=== PATIENT | male | born 1955 | race Caucasian/White ===

== ENCOUNTER 2018-07-20 06:52 | Inpatient (IN) | payer BC, OTHER ==
[~2018-07-20] VITALS: Ht 175.3 cm; Wt 79.0 kg
[2018-07-20 08:05] LABS: Basophils # (auto) 0.1 uL; Basophils % (auto) 0.8 % (0.0-2.0); Eosinophils # (auto) 0.1 uL; Eosinophils % (auto) 1.1 % (0.0-7.0); Hematocrit 51.1 % (41.0-53.0); Hemoglobin 17.5 g/dL (13.5-17.5); Lymphocytes # (auto) 0.9 uL; Lymphocytes % (auto) 8.6 % (10.0-50.0); Mean Corpuscular Hemoglobin 33.2 pg (28.0-32.0); Mean Corpuscular Hgb Conc. 34.2 g/dL (32.0-36.0); Mean Corpuscular Volume 96.9 fL (80.0-100.0); Monocytes # (auto) 0.7 uL; Monocytes % (auto) 6.8 % (0.0-12.0); Neutrophils # (auto) 8.7 uL; Neutrophils % (auto) 82.7 % (37.0-80.0); Nucleated Red Blood Cells % 0.1 %; Platelet Count (auto) 249 10^3/uL (140-450); Red Blood Cells 5.27 10^6/uL (4.5-5.90); Red Cell Distribution Width 12.9 % (11.8-14.3); White Blood Cell 10.5 10^3/uL (4.4-10.8)
[2018-07-20] MEDS ORDERED: SODIUM CHLORIDE 0.9% 1,000 ML IV ONE (08:06)
[2018-07-20 08:16] LABS: Albumin 3.7 g/dL (3.4-5.0); Calcium 8.7 mg/dL (8.5-10.1); Potassium 3.9 mmol/L (3.5-5.1)
[2018-07-20 08:20] LABS: Bilirubin, Total 1.8 mg/dL (0.2-1.0); Total Protein 7.3 g/dL (6.4-8.2)
[2018-07-20 08:49] LABS: INR 0.92 (0.9-1.15); Partial Thromboplastin Time 25.1 sec (23.78-33.04); Prothrombin Time 9.9 sec (9.27-12.13)
[2018-07-20 10:56] LABS: Urine Bacteria FEW /hpf (None Seen); Urine Blood Negative /uL (Negative); Urine Mucus FEW (None Seen); Urine Specific Gravity 1.011 (1.001-1.035); Urine WBC 3 /hpf (0 - 3)
[2018-07-20] MEDS ORDERED: ENOXAPARIN SOD 60 MG/0.6 ML SYRINGE SC ONE (11:30)
[2018-07-20] MEDS ORDERED: ASPirin 81 mg TAB PO ONE (11:30)
[2018-07-20] MEDS ORDERED: ACETAMINOPHEN 500 MG TAB PO PRN (12:15)
[2018-07-20] MEDS ORDERED: NITROGLYCERIN 0.4 MG SL TAB SL PRN (12:15)
[2018-07-20] MEDS ORDERED: ALPRAZolam 0.25 MG TAB PO PRN (12:15)
[2018-07-20] MEDS ORDERED: HYDROcodone-ACET 5/325MG TAB PO PRN (12:15)
[2018-07-20] MEDS ORDERED: MORPHINE SULF INJ 2 MG/ML SYRINGE 1ML IV PRN (12:15)
[2018-07-20] MEDS ORDERED: MORPHINE SULFATE 4 MG/ML SYR/VIAL IV PRN (12:15)
[2018-07-20] MEDS ORDERED: NITROGLYCERIN 0.4MG/HR TOPICAL PATCH TD ONE (12:15)
[2018-07-20] MEDS ORDERED: ONDANSETRON HCL 4 MG/2 ML VIAL IV PRN (12:15)
[2018-07-20] MEDS ORDERED: NICOTINE 21MG/24 HR TOPICAL PATCH TD ONE (12:15)
[2018-07-20] MEDS: SODIUM CHLORIDE 0.9% 1,000 ML IV SCH ×2 (12:39→22:12)
[2018-07-20] MEDS ORDERED: ENOXAPARIN SOD 80 MG/0.8ML SYRINGE SC ONE (21:00)
--- NOTE | 2018-07-20 21:17 | NUR ---
Telemetry admit from [facility] admitted to Telemetry. Patient oriented to Chidi Hernandez, primary RN, unit, room, bed, and unit policies regarding patient care and visiting hours. Patient now on continuous telemetry monitoring, tele box # HC9 and telemetry reading on arrival to unit is SR 60s. Patient's vs taken and recorded, weighed by bedscale and encouraged to call if they need something, call light within reach. POC reviewed. All questions and concerns addressed, patient verbalized understanding. Aware of poss lhc in am, will be npo p mn. Side rails up x2, bed in lowest, locked position, non skid socks on. Continue care. Note:
[2018-07-20 21:20] VITALS: BP 137/80
[2018-07-20 21:21] VITALS: BP 137/80
[2018-07-20] MEDS: METOPROLOL TARTRATE 25 MG TAB PO SCH (22:12)
[2018-07-20] MEDS: ATORVASTATIN 20 MG TAB PO SCH (22:12)
[2018-07-21 05:00] VITALS: BP 126/64
--- NOTE | 2018-07-21 06:35 | NUR ---
BUSINESS INTELLIGENCE DIRECTOR SPOKE TO TRICIA AJ REGARDING PT'S SCHEDULE. PER MÓNICA RN, BRING PT TO BUSINESS INTELLIGENCE DIRECTOR BETWEEN [phone]. PT MADE AWARE. WILL ENDORSE TO DAY RN. CONTINUE CARE. Addendum: 07/21/18 at 0701 by Chidi Hernandez RN RECEIVED CALL FROM BUSINESS INTELLIGENCE DIRECTOR, THEY WILL CALL FOR NEW TIME FOR [facility]. PT INFORMED. WILL ENDORSE.
[2018-07-21 07:17] LABS: Basophils # (auto) 0.1 uL; Basophils % (auto) 0.8 % (0.0-2.0); Eosinophils # (auto) 0.2 uL; Eosinophils % (auto) 2.3 % (0.0-7.0); Hematocrit 44.8 % (41.0-53.0); Hemoglobin 15.5 g/dL (13.5-17.5); Lymphocytes # (auto) 1.5 uL; Lymphocytes % (auto) 21.4 % (10.0-50.0); Mean Corpuscular Hemoglobin 33.7 pg (28.0-32.0); Mean Corpuscular Hgb Conc. 34.6 g/dL (32.0-36.0); Mean Corpuscular Volume 97.4 fL (80.0-100.0); Monocytes # (auto) 0.6 uL; Monocytes % (auto) 8.7 % (0.0-12.0); Neutrophils # (auto) 4.7 uL; Neutrophils % (auto) 66.8 % (37.0-80.0); Nucleated Red Blood Cells % 0.1 %; Platelet Count (auto) 215 10^3/uL (140-450); Red Cell Distribution Width 12.7 % (11.8-14.3)
[2018-07-21 07:48] LABS: Potassium 3.9 mmol/L (3.5-5.1)
[2018-07-21 07:57] LABS: BUN/Creatinine Ratio 15.2; Calcium 7.8 mg/dL (8.5-10.1)
--- NOTE | 2018-07-21 08:05 | NUR ---
Called Staff Counselor. Spoke with Liya. Liya said patient allowed to have light breakfast, no coffee, estimated time of Left Heart Cath in the afternoon. Staff Counselor will call back.
[2018-07-21] MEDS: SODIUM CHLORIDE 0.9% 1,000 ML IV SCH ×2 (08:15→17:32)
[2018-07-21] MEDS ORDERED: LIDOCAINE 2%HCL (LOCAL ANESTH.) INJ 20ML MDV ONE (08:25)
[2018-07-21] MEDS ORDERED: IODIXANOL 320MG/ML 100ML BTL IV ONE (08:26)
--- NOTE | 2018-07-21 08:35 | NUR ---
Received a call back from Solution Lead to transfer the patient now for Left Heart Cath. Solution Lead RN made aware patient had light breakfast as ordered, no coffee.
--- NOTE | 2018-07-21 08:40 | NUR ---
Patient transferred via bed to [place] Worker. Patient awake, oriented x4. No acute distress noted. IV line intact and patent. Endorsed patient to lab animal technician JEAN MARIE Stewart.
[2018-07-21] MEDS ORDERED: ANGIOMAX 250 MG VIAL IV ONE (08:43)
[2018-07-21] MEDS ORDERED: SODIUM CHL 0.9% 50 ML ONE (08:45)
[2018-07-21] MEDS ORDERED: fentaNYL CITRATE 100 MCG/2 ML VL ONE (08:45)
[2018-07-21] MEDS ORDERED: MIDAZOLAM HCL 1MG/1ML-2 ML VIAL ONE (08:45)
[2018-07-21] MEDS ORDERED: NITROGLYCERIN 0.4MG/DOSE SPRAY 4.9GM ONE (08:48)
[2018-07-21 09:00] VITALS: BP 123/67
[2018-07-21] MEDS ORDERED: EPINEPHrine HCL 1 MG/10 ML SYRG ONE (09:08)
[2018-07-21] MEDS ORDERED: ATROPINE SULFATE 1 MG/1 ML VIAL ONE (09:08)
[2018-07-21] MEDS ORDERED: IOHEXOL 350 MG/ML 100ML IJ ONE (09:15)
[2018-07-21] MEDS ORDERED: CLOPIDOGREL 300 MG TAB ONE (09:28)
[2018-07-21] MEDS ORDERED: ASPirin 81 mg TAB ONE (09:28)
[2018-07-21] MEDS ORDERED: ASPirin 325 MG TAB ONE (09:30)
[2018-07-21] MEDS ORDERED: NITROGLYCERIN 0.4 MG SL TAB SL ONE (10:00)
--- NOTE | 2018-07-21 10:30 | NUR ---
Patient back to room, awake, oriented x4. Dressing on the right groin clean, dry and intact. Patient allowed to get up at 11:30 am today as per Deaf/Hard Of Hearing Specialist. Bed alarm on. Patient's cellphone, biosecurity officer, pair of eyeglasses, pair of white sneakers at bedside.
[2018-07-21] MEDS: METOPROLOL TARTRATE 25 MG TAB PO SCH ×2 (10:53→21:47)
[2018-07-21] MEDS: NITROGLYCERIN 0.4MG/HR TOPICAL PATCH TD SCH (10:54)
--- NOTE | 2018-07-21 10:54 | NUR ---
Patient no complaints of chest pain, okay to apply his Nitroglycerin patch on the left upper chest. Patient to press the call light to inform me if he gets headache. at bedside.
[2018-07-21] MEDS: NICOTINE 21MG/24 HR TOPICAL PATCH TD SCH (10:55)
--- NOTE | 2018-07-21 11:45 | NUR ---
Patient able to get up and walk to the bathroom.
[2018-07-21 13:00] VITALS: BP 120/67
--- NOTE | 2018-07-21 13:20 | NUR ---
Karo Tineo at bedside. MD ordered to follow up with Dr. Christensen if patient is okay to go home tomorrow. Patient asked for doctor's notes when he gets discharged, patient said he's currently on disability.
--- NOTE | 2018-07-21 16:08 | NUR ---
Informed Dr. Christensen if it's okay to discharge the patient with prescription tomorrow as per [place] Tineo. Waiting for Dr. Christensen to call back.
[2018-07-21 17:00] VITALS: BP 87/48
--- NOTE | 2018-07-21 18:00 | NUR ---
Dr. Christensen said it's okay to discharge the patient tomorrow, 07/22/2018.
[2018-07-21] MEDS: ATORVASTATIN 20 MG TAB PO SCH (21:48)
[2018-07-21 22:07] VITALS: BP 109/57
[2018-07-22] MEDS: SODIUM CHLORIDE 0.9% 1,000 ML IV SCH ×2 (04:15→13:18)
[2018-07-22 05:18] VITALS: BP 116/62
--- NOTE | 2018-07-22 07:25 | NUR ---
CLOSING NOTE REPORT ENDORSED TO DAY SHIFT RN PATIENT RESTING IN BED. DRESSING TO RIGHT GROIN C/D/I, NO S/S OF BLEEDING OR HEMATOMA NOTED. PT STABLE. CALL LIGHT WITHIN REACH
--- NOTE | 2018-07-22 07:40 | NUR ---
Patient sitting in bed, awake, oriented x4. No acute distress noted.
[2018-07-22 09:00] VITALS: BP 125/52
[2018-07-22] MEDS ORDERED: CLOPIDOGREL BISULFATE 75 MG TAB PO SCH (10:00)
[2018-07-22] MEDS ORDERED: RAMIPRIL 2.5 MG CAP PO SCH (10:00)
[2018-07-22] MEDS: NITROGLYCERIN 0.4MG/HR TOPICAL PATCH TD SCH (10:00)
[2018-07-22] MEDS ORDERED: ASPirin 81 mg TAB PO SCH (10:00)
--- NOTE | 2018-07-22 10:24 | NUR ---
Called Pharmacy for Altace/Ramipril.
[2018-07-22] MEDS: NICOTINE 21MG/24 HR TOPICAL PATCH TD SCH (10:29)
[2018-07-22] MEDS: METOPROLOL TARTRATE 25 MG TAB PO SCH (10:30)
--- NOTE | 2018-07-22 12:05 | NUR ---
Karo Tineo at bedside. spoke with the patient and family. Patient said he does take medications at home. Dr. Cee to put in discharge orders, doctor's notes, write prescription. Addendum: 07/22/18 at 1321 by Cesilia Riojas RN does not take medications at home.
[2018-07-22 13:00] VITALS: BP 134/71
--- NOTE | 2018-07-22 14:10 | NUR ---
Called Dr. Christensen's office. Spoke with Diamond. Patient to make a follow up appointment at Dr. Christensen's office for Cardiology on 07/27/2018 at 0940 am, bring ID and insurance card ID. Patient made aware. Accounting Lecturer Verna Kramer at bedside regarding patient's primary physician appointment.
--- NOTE | 2018-07-22 16:10 | NUR ---
Discharge instructions given as ordered. Encourage to follow up with PMD as instructed. All questions and concerns addressed. Patient verbalized understanding. Medication reconciliation form completed and copy given to patient. IV removed with catheter intact, pressure dressing applied. Telemetry unit returned to [facility]. Patient is ambulatory, patient refused to be taken to vehicle via wheelchair, patient with all personal belongings, accompanied by family members. Patient said he will pass by [facility] to pick his prescription refill. No distress noted at time of departure.
== END 2018-07-22 16:10 | disposition home or self-care (01) | DRG 247 ==
LOC: EDBD 06:52 → ER 06:58 → TELE 12:15 → TELE-WESTW 21:17
PROVIDERS: ADMIT Nurse Practitioner Acute Care; ATTEND Family Medicine
PROC: 027034Z Dilation of Coronary Artery, One Artery with Drug-eluting Intraluminal Device, Percutaneous Approach (ICD-10-PCS; principal; 2018-07-21)
PROC: B2111ZZ Fluoroscopy of Multiple Coronary Arteries using Low Osmolar Contrast (ICD-10-PCS; 2018-07-21)
DX: I21.4 Non-ST elevation (NSTEMI) myocardial infarction (principal); F17.210 Nicotine dependence, cigarettes, uncomplicated; I10 Essential (primary) hypertension; E78.5 Hyperlipidemia, unspecified; E78.00 Pure hypercholesterolemia, unspecified; Z82.49 Family history of ischemic heart disease and other diseases of the circulatory system; Z79.02 Long term (current) use of antithrombotics/antiplatelets
CPT/HCPCS: 36415; 71046; 80048; 80053; 80061; 81001; 83735; 83880; 84443; 84484; 85025; 85379; 85610; 85730; 93005; 94761; 96360; 96372; A6257; G0378; J0461; J2250; Q9967

== ENCOUNTER → 2018-08-30 | Outpatient (CLI) | payer BC ==
[~2018-08-30] VITALS: Ht 176.5 cm; Wt 77.1 kg
== END | disposition home or self-care (01) ==
LOC: Rad HDHVI 08:14
PROVIDERS: ATTEND Internal Medicine Cardiovascular Disease
DX: I07.1 Rheumatic tricuspid insufficiency (principal); I25.10 Atherosclerotic heart disease of native coronary artery without angina pectoris; I21.09 ST elevation (STEMI) myocardial infarction involving other coronary artery of anterior wall; Z98.61 Coronary angioplasty status
CPT/HCPCS: 78452; 93017; 93306; 96374; A9500

== ENCOUNTER → 2018-11-29 | Outpatient (CLI) | payer BC ==
[2018-11-29 10:25] LABS: Basophils # (auto) 0.1 uL; Eosinophils # (auto) 0.1 uL; Eosinophils % (auto) 1.5 % (0.0-7.0); Hematocrit 45.5 % (41.0-53.0); Hemoglobin 15.5 g/dL (13.5-17.5); Lymphocytes # (auto) 1.9 uL; Lymphocytes % (auto) 27.8 % (10.0-50.0); Mean Corpuscular Hemoglobin 32.9 pg (28.0-32.0); Mean Corpuscular Hgb Conc. 34.1 g/dL (32.0-36.0); Mean Corpuscular Volume 96.3 fL (80.0-100.0); Monocytes # (auto) 0.4 uL; Monocytes % (auto) 6.6 % (0.0-12.0); Neutrophils # (auto) 4.3 uL; Neutrophils % (auto) 63.1 % (37.0-80.0); Nucleated Red Blood Cells % 0.1 %; Platelet Count (auto) 233 10^3/uL (140-450); Red Blood Cells 4.73 10^6/uL (4.5-5.90); Red Cell Distribution Width 12.8 % (11.8-14.3); White Blood Cell 6.8 10^3/uL (4.4-10.8)
[2018-11-29 10:36] LABS: Albumin 3.6 g/dL (3.4-5.0); BUN/Creatinine Ratio 18.9; Potassium 4.6 mmol/L (3.5-5.1)
[2018-11-29 10:38] LABS: Bilirubin, Total 1.3 mg/dL (0.2-1.0); Total Protein 7.2 g/dL (6.4-8.2)
[2018-11-29 10:43] LABS: Free T4 (Free Thyroxine) 1.04 ng/dL (0.89-1.76)
== END | disposition home or self-care (01) ==
LOC: LAB 09:48
PROVIDERS: ATTEND Internal Medicine
DX: E11.9 Type 2 diabetes mellitus without complications (principal)
CPT/HCPCS: 36415; 80053; 80061; 82607; 83036; 84439; 84443; 85025

== ENCOUNTER → 2019-10-08 | Emergency (ER) | payer BC ==
[~2019-10-08] VITALS: Ht 172.7 cm; Wt 77.1 kg
[~2019-10-08] MED LIST: SODIUM CHLORIDE 0.9% 1,000 ML IV ONE; THIAMINE 100mg/ml INJ (200mg/2ml VIAL) ONE; THIAMINE INJ 100 MG in SODIUM CHLORIDE 0.9% 1,000 ML IV ONE
[2019-10-08 00:56] LABS: Basophils # (auto) 0 10 ^3/uL (0-0.2); Basophils % (auto) 0.3 % (0.0-2.0); Eosinophils # (auto) 0.1 10 ^3/uL (0-0.8); Eosinophils % (auto) 1.9 % (0.0-7.0); Hematocrit 44.1 % (41.0-53.0); Hemoglobin 15.2 g/dL (13.5-17.5); Lymphocytes # (auto) 2.1 10 ^3/uL (0.4-5.4); Mean Corpuscular Hemoglobin 32.2 pg (28.0-32.0); Mean Corpuscular Hgb Conc. 34.5 g/dL (32.0-36.0); Mean Corpuscular Volume 93.6 fL (80.0-100.0); Monocytes # (auto) 0.4 10 ^3/uL (0-1.3); Monocytes % (auto) 6.8 % (0.0-12.0); Neutrophils # (auto) 3.6 10 ^3/uL (1.6-8.6); Nucleated Red Blood Cells % 0.3 %; Platelet Count (auto) 284 10^3/uL (140-450); Red Blood Cells 4.72 10^6/uL (4.5-5.90); Red Cell Distribution Width 12.9 % (11.8-14.3); White Blood Cell 6.3 10^3/uL (4.4-10.8)
[2019-10-08 01:11] LABS: Alanine Aminotransferase 56 U/L (16-61); Albumin 3.8 g/dL (3.4-5.0); Anion Gap 8 (5-15); Aspartate Aminotransferase 24 U/L (15-37); BUN/Creatinine Ratio 14.5; Blood Urea Nitrogen 12 mg/dL (7-18); Calcium 8.4 mg/dL (8.5-10.1); Carbon Dioxide 21 mmol/L (21-32); Chloride 111 mmol/L (98-107); GFR African American 120 mL/min; GFR Non-African American 99 mL/min; Glucose 130 mg/dL (74-106); Magnesium 2.5 mg/dL (1.6-2.6); Potassium 4.2 mmol/L (3.5-5.1); Sodium 140 mmol/L (136-145)
[2019-10-08 01:12] LABS: INR 0.95 (0.9-1.15); Partial Thromboplastin Time 24.6 sec (23.64-32.05)
[2019-10-08 01:16] LABS: Alkaline Phosphatase 81 U/L (45-117); Bilirubin, Total 0.8 mg/dL (0.2-1.0); Total Protein 7.2 g/dL (6.4-8.2)
[2019-10-08 01:36] LABS: Urine WBC None Seen /hpf (0 - 3)
[2019-10-08 01:57] LABS: Amphetamine Screen, Urine NEGATIVE (NEGATIVE); Barbiturate Scree,Urine NEGATIVE (NEGATIVE); Benzodiazephine Screen, Urine NEGATIVE (NEGATIVE); Cannabinoid Screen, Urine NEGATIVE (NEGATIVE); Cocaine Screen, Urine NEGATIVE (NEGATIVE); Opiate Scree,Urine NEGATIVE (NEGATIVE); Phencyclidine Screen, Urine NEGATIVE (NEGATIVE)
[2019-10-08 02:12] LABS: Urine Bacteria NONE SEEN /hpf (None Seen); Urine Blood Negative /uL (Negative); Urine Specific Gravity 1.005 (1.001-1.035)
[2019-10-08 05:55] VITALS: BP 128/86
== END | disposition home or self-care (01) ==
LOC: EDUNIT# 00:19 → EDBD 00:27 → ER 00:29
DX: R07.89 Other chest pain (principal); F10.129 Alcohol abuse with intoxication, unspecified; K21.9 Gastro-esophageal reflux disease without esophagitis; F17.210 Nicotine dependence, cigarettes, uncomplicated; I10 Essential (primary) hypertension; J44.9 Chronic obstructive pulmonary disease, unspecified; I25.10 Atherosclerotic heart disease of native coronary artery without angina pectoris; I25.2 Old myocardial infarction
CPT/HCPCS: 36415; 71045; 80053; 80307; 80320; 81001; 83735; 83880; 84484; 85025; 85379; 85610; 85730; 93005; 96365; 99285; J3411; J7030

== ENCOUNTER 2019-12-26 19:57 | Emergency (ER) | payer BC ==
[~2019-12-26] VITALS: Ht 175.3 cm; Wt 81.6 kg
[2019-12-26 20:21] VITALS: BP 175/71
[2019-12-26] MEDS ORDERED: LIDOCAINE 1% HCL (LOCAL ANESTH.) INJ 20ML MDV ONE (20:27)
[2019-12-26] MEDS ORDERED: LIDOCAINE 1% HCL (LOCAL ANESTH.) INJ 20ML MDV IJ ONE (20:30)
[2019-12-26] MEDS ORDERED: cefTRIAXone W LIDOCAINE 1 GM IM IM ONE (20:45)
[2019-12-26] MEDS ORDERED: cefTRIAXone SOD 1,000 MG VL ONE (21:33)
[2019-12-26 21:53] LABS: Basophils # (auto) 0 10 ^3/uL (0-0.2); Basophils % (auto) 0.2 % (0.0-2.0); Eosinophils # (auto) 0.1 10 ^3/uL (0-0.8); Eosinophils % (auto) 1.7 % (0.0-7.0); Hemoglobin 14.2 g/dL (13.5-17.5); Lymphocytes # (auto) 1.9 10 ^3/uL (0.4-5.4); Lymphocytes % (auto) 25.8 % (10.0-50.0); Mean Corpuscular Hemoglobin 32.8 pg (28.0-32.0); Mean Corpuscular Hgb Conc. 34.7 g/dL (32.0-36.0); Mean Corpuscular Volume 94.7 fL (80.0-100.0); Monocytes # (auto) 0.6 10 ^3/uL (0-1.3); Monocytes % (auto) 8.1 % (0.0-12.0); Neutrophils # (auto) 4.7 10 ^3/uL (1.6-8.6); Neutrophils % (auto) 64.2 % (37.0-80.0); Platelet Count (auto) 271 10^3/uL (140-450); Red Blood Cells 4.32 10^6/uL (4.5-5.90); Red Cell Distribution Width 12.7 % (11.8-14.3); White Blood Cell 7.3 10^3/uL (4.4-10.8)
[2019-12-26 22:05] LABS: INR 0.93 (0.9-1.15); Partial Thromboplastin Time 23.4 sec (23.0-31.2)
[2019-12-26 22:06] LABS: Albumin 3.5 g/dL (3.4-5.0); Calcium 8.4 mg/dL (8.5-10.1)
[2019-12-26 22:10] LABS: BUN/Creatinine Ratio 16.2; Total Protein 6.3 g/dL (6.4-8.2)
== END 2019-12-26 21:53 | disposition home or self-care (01) ==
LOC: ER 19:58
DX: S62.522B Displaced fracture of distal phalanx of left thumb, initial encounter for open fracture (principal); I10 Essential (primary) hypertension; F17.210 Nicotine dependence, cigarettes, uncomplicated; W22.8XXA Striking against or struck by other objects, initial encounter; Y93.89 Activity, other specified; Y92.89 Other specified places as the place of occurrence of the external cause; Y99.8 Other external cause status
CPT/HCPCS: 12002; 36415; 73130; 80053; 85025; 85610; 85730; 96372; 99284; J0696; J2001

== ENCOUNTER → 2020-01-03 | Outpatient (CLI) | payer BC ==
[2020-01-03 11:15] LABS: Basophils # (auto) 0.1 10 ^3/uL (0-0.2); Basophils % (auto) 1.1 % (0.0-2.0); Eosinophils # (auto) 0.1 10 ^3/uL (0-0.8); Eosinophils % (auto) 0.9 % (0.0-7.0); Hematocrit 44.5 % (41.0-53.0); Hemoglobin 14.9 g/dL (13.5-17.5); Lymphocytes # (auto) 1.6 10 ^3/uL (0.4-5.4); Lymphocytes % (auto) 21.9 % (10.0-50.0); Mean Corpuscular Hemoglobin 31.7 pg (28.0-32.0); Mean Corpuscular Hgb Conc. 33.4 g/dL (32.0-36.0); Mean Corpuscular Volume 94.8 fL (80.0-100.0); Monocytes # (auto) 0.4 10 ^3/uL (0-1.3); Monocytes % (auto) 6.1 % (0.0-12.0); Neutrophils # (auto) 5.1 10 ^3/uL (1.6-8.6); Platelet Count (auto) 318 10^3/uL (140-450); Red Blood Cells 4.69 10^6/uL (4.5-5.90); Red Cell Distribution Width 12.7 % (11.8-14.3); White Blood Cell 7.2 10^3/uL (4.4-10.8)
[2020-01-03 11:22] LABS: Urine Bacteria NONE SEEN /hpf (None Seen); Urine Blood Negative /uL (Negative); Urine Mucus FEW (None Seen); Urine WBC 1 /hpf (0 - 3)
[2020-01-03 12:05] LABS: Albumin 3.6 g/dL (3.4-5.0); Calcium 8.9 mg/dL (8.5-10.1); Potassium 4.4 mmol/L (3.5-5.1)
[2020-01-03 12:09] LABS: BUN/Creatinine Ratio 12.5; Bilirubin, Total 1.6 mg/dL (0.2-1.0); Total Protein 6.7 g/dL (6.4-8.2)
== END | disposition home or self-care (01) ==
LOC: LAB 10:23
PROVIDERS: ATTEND Nurse Practitioner
DX: E78.5 Hyperlipidemia, unspecified (principal); E73.9 Lactose intolerance, unspecified
CPT/HCPCS: 36415; 80053; 80061; 81001; 83036; 85025

== ENCOUNTER → 2020-02-07 | Outpatient (CLI) | payer BC | END | disposition home or self-care (01) | LOC: LAB 08:41 | PROVIDERS: ATTEND Internal Medicine Cardiovascular Disease | DX: S69.92XD Unspecified injury of left wrist, hand and finger(s), subsequent encounter (principal); I25.10 Atherosclerotic heart disease of native coronary artery without angina pectoris; E88.40 Mitochondrial metabolism disorder, unspecified; M35.00 Sjogren syndrome, unspecified; X58.XXXD Exposure to other specified factors, subsequent encounter | CPT/HCPCS: 86235 ==

== ENCOUNTER → 2020-02-14 | Outpatient (CLI) | payer BC | END | disposition home or self-care (01) | LOC: Rad HDHVI 14:56 | PROVIDERS: ATTEND Internal Medicine Cardiovascular Disease | DX: I25.10 Atherosclerotic heart disease of native coronary artery without angina pectoris (principal); I50.33 Acute on chronic diastolic (congestive) heart failure | CPT/HCPCS: 93306 ==

== ENCOUNTER → 2022-06-08 | Outpatient (CLI) | payer BC, MEDICARE | END | disposition home or self-care (01) | LOC: Rad HDHVI 12:45 | PROVIDERS: ATTEND Internal Medicine Cardiovascular Disease | DX: M77.32 Calcaneal spur, left foot (principal); M85.872 Other specified disorders of bone density and structure, left ankle and foot; M47.899 Other spondylosis, site unspecified | CPT/HCPCS: 73630 ==

== ENCOUNTER → 2022-06-11 | Outpatient (CLI) | payer MEDICARE ==
[2022-06-11 11:50] LABS: Basophils # (auto) 0.1 10 ^3/uL (0-0.2); Basophils % (auto) 1.2 % (0.0-2.0); Eosinophils # (auto) 0.2 10 ^3/uL (0-0.8); Eosinophils % (auto) 3.3 % (0.0-7.0); Hematocrit 47.4 % (41.0-53.0); Hemoglobin 15.7 g/dL (13.5-17.5); Lymphocytes # (auto) 1.7 10 ^3/uL (0.4-5.4); Lymphocytes % (auto) 28.6 % (10.0-50.0); Mean Corpuscular Hemoglobin 31.8 pg (28.0-32.0); Mean Corpuscular Hgb Conc. 33.1 g/dL (32.0-36.0); Mean Corpuscular Volume 96.2 fL (80.0-100.0); Monocytes # (auto) 0.5 10 ^3/uL (0-1.3); Monocytes % (auto) 7.7 % (0.0-12.0); Neutrophils # (auto) 3.6 10 ^3/uL (1.6-8.6); Neutrophils % (auto) 59.2 % (37.0-80.0); Nucleated Red Blood Cells % 0.1 %; Red Blood Cells 4.93 10^6/uL (4.5-5.90); Red Cell Distribution Width 12.3 % (11.8-14.3)
[2022-06-11 11:57] LABS: Urine Blood Negative /uL (Negative)
[2022-06-11 12:01] LABS: Albumin 3.8 g/dL (3.4-5.0); Calcium 8.9 mg/dL (8.5-10.1); Potassium 4.2 mmol/L (3.5-5.1)
[2022-06-11 12:07] LABS: BUN/Creatinine Ratio 18.7; Bilirubin, Total 1.4 mg/dL (0.2-1.0); Total Protein 6.8 g/dL (6.4-8.2)
[2022-06-11 13:12] LABS: Free T4 (Free Thyroxine) 1.03 ng/dL (0.89-1.76)
[2022-06-11 13:13] LABS: Prostate Specific Antigen 3.95 ng/mL (0.0-4.0)
== END | disposition home or self-care (01) ==
LOC: LAB 08:27
PROVIDERS: ATTEND Internal Medicine Cardiovascular Disease
DX: I25.10 Atherosclerotic heart disease of native coronary artery without angina pectoris (principal); E55.9 Vitamin D deficiency, unspecified
CPT/HCPCS: 36415; 80053; 80061; 81003; 82306; 82607; 83036; 84153; 84403; 84439; 84443; 85025

== ENCOUNTER → 2022-06-16 | Outpatient (CLI) | payer MEDICARE | END | disposition home or self-care (01) | LOC: Rad HDHVI 14:53 | PROVIDERS: ATTEND Internal Medicine Cardiovascular Disease | DX: I11.0 Hypertensive heart disease with heart failure (principal); I50.23 Acute on chronic systolic (congestive) heart failure; I34.0 Nonrheumatic mitral (valve) insufficiency; R00.2 Palpitations; E78.5 Hyperlipidemia, unspecified | CPT/HCPCS: 93306 ==

== ENCOUNTER → 2022-06-18 | Outpatient (CLI) | payer MEDICARE ==
[~2022-06-18] VITALS: Ht 175.3 cm; Wt 86.2 kg
[~2022-06-18] MED LIST changes: +ADENOSINE 72 MG in GIVE UN-DILUTED 0 ML IV ONE; +ADENOSINE 90 MG/30 ML INJ IV ONE; -SODIUM CHLORIDE 0.9% 1,000 ML IV ONE; -THIAMINE 100mg/ml INJ (200mg/2ml VIAL) ONE; -THIAMINE INJ 100 MG in SODIUM CHLORIDE 0.9% 1,000 ML IV ONE
== END | disposition home or self-care (01) ==
LOC: Rad HDHVI 09:07
PROVIDERS: ATTEND Internal Medicine Cardiovascular Disease
DX: I11.0 Hypertensive heart disease with heart failure (principal); I50.23 Acute on chronic systolic (congestive) heart failure; I25.10 Atherosclerotic heart disease of native coronary artery without angina pectoris; I42.1 Obstructive hypertrophic cardiomyopathy; R06.02 Shortness of breath; I25.2 Old myocardial infarction; Z82.49 Family history of ischemic heart disease and other diseases of the circulatory system; Z79.82 Long term (current) use of aspirin; Z79.899 Other long term (current) drug therapy
CPT/HCPCS: 78452; 93005; 96374; 96375; A9500; J0153

== ENCOUNTER 2023-03-01 03:09 | Inpatient (IN) | payer MEDICARE ==
[2023-03-01] VITALS (8 sets, daily range): BP systolic 97–121; BP diastolic 43–101; PULSE 82–127; RESP 16–26; TEMP 97.9; O2SAT 91–95
[~2023-03-01] VITALS: Ht 175.3 cm; Wt 86.3 kg
[2023-03-01 03:26] LABS: Basophils # (auto) 0.1 10 ^3/uL (0-0.2); Basophils % (auto) 0.6 % (0.0-2.0); Eosinophils # (auto) 0.1 10 ^3/uL (0-0.8); Eosinophils % (auto) 0.4 % (0.0-7.0); Hematocrit 30.8 % (41.0-53.0); Hemoglobin 10.4 g/dL (13.5-17.5); Lymphocytes # (auto) 1.5 10 ^3/uL (0.4-5.4); Lymphocytes % (auto) 9.7 % (10.0-50.0); Mean Corpuscular Hemoglobin 31.2 pg (28.0-32.0); Mean Corpuscular Hgb Conc. 33.8 g/dL (32.0-36.0); Mean Corpuscular Volume 92.3 fL (80.0-100.0); Monocytes # (auto) 0.8 10 ^3/uL (0-1.3); Monocytes % (auto) 5.1 % (0.0-12.0); Neutrophils # (auto) 12.9 10 ^3/uL (1.6-8.6); Neutrophils % (auto) 84.2 % (37.0-80.0); Red Blood Cells 3.34 10^6/uL (4.5-5.90); Red Cell Distribution Width 13.3 % (11.8-14.3); White Blood Cell 15.3 10^3/uL (4.4-10.8)
[2023-03-01] MEDS ORDERED: DexAMETHasone SOD PHOS 10MG/1ML VIAL INJ IV ONE (03:30)
[2023-03-01 03:44] LABS: Alanine Aminotransferase 85 U/L (7-40); Albumin 3.5 g/dL (3.2-4.8); Alkaline Phosphatase 70 U/L (46-116); Anion Gap 11 (5-15); Aspartate Aminotransferase 101 U/L (13-40); BUN/Creatinine Ratio 20.4 (10.0-20.0); Bilirubin, Total 1.9 mg/dL (0.2-1.0); Blood Urea Nitrogen 19 mg/dL (9-23); Calcium 8.4 mg/dL (8.7-10.4); Carbon Dioxide 21 mmol/L (20-30); Chloride 97 mmol/L (98-107); Glucose 190 mg/dL (74-106); Magnesium 1.7 mg/dL (1.6-2.6); Potassium 3.6 mmol/L (3.5-5.1); Sodium 129 mmol/L (136-145); Total Protein 5.7 g/dL (5.7-8.2)
[2023-03-01 03:53] LABS: INR 1.18 (0.9-1.15); Partial Thromboplastin Time 26.7 SEC (24.5-34.5); Prothrombin Time 12.3 sec (9.3-11.8)
[2023-03-01] MEDS ORDERED: SODIUM CHLORIDE 0.9% 2,000 ML IV ONE (04:30)
[2023-03-01] MEDS ORDERED: PIPERACILLIN-TAZOB 3.375GM 100 ML IV ONE (04:30)
[2023-03-01] MEDS ORDERED: VANCOMYCIN 1GM/250ML 250 ML IV ONE (04:30)
[2023-03-01 04:55] LABS: Lactic Acid w/Reflex 2.8 mmol/L (0.4-2.0)
[2023-03-01] MEDS ORDERED: ACETAMINOPHEN 325 MG TAB PO ONE (05:15)
[2023-03-01] MEDS ORDERED: LACTATED RINGER'S 1,000 ML IV ONE (05:30)
[2023-03-01 05:33] LABS: Urine Bacteria NONE SEEN /hpf (None Seen); Urine Blood TRACE /uL (Negative); Urine Clarity Clear (Clear); Urine Color Yellow (Yellow); Urine Hyaline Cast FEW /lpf (0 - 2); Urine Mucus FEW (None Seen); Urine Protein, UAD TRACE (Negative); Urine Specific Gravity 1.028 (1.001-1.035); Urine Urobilinogen Normal (Negative); Urine WBC 2 /hpf (0 - 3); Urine pH 5.5 (5.0-8.0)
[2023-03-01] MEDS ORDERED: MORPHINE SULFATE INJ 2 MG/ml SYRG IV PRN (06:30)
[2023-03-01] MEDS ORDERED: DEXTROSE (50%) 50ML SYRG IV PRN (06:30)
[2023-03-01] MEDS ORDERED: ONDANSETRON HCL 4 MG/2 ML VIAL IV PRN (06:30)
[2023-03-01] MEDS ORDERED: HYDROcodone-ACET 5/325MG TAB PO PRN (06:30)
[2023-03-01] MEDS ORDERED: NITROGLYCERIN 0.4 MG SL TAB SL PRN (06:30)
[2023-03-01] MEDS ORDERED: ALBUTEROL SULF 2.5 MG/0.5ML(0.5%) NEB SOLN NEB PRN (06:30)
[2023-03-01 06:57] LABS: COVID19 ANTIGEN SOFIA FIA NEGATIVE (NEGATIVE); Rapid Influenza A Negative (Negative); Rapid Influenza B Negative (Negative)
[2023-03-01] MEDS: ACCU-CHEK COMFORT CURVE STRIP VI SCH ×4 (07:35→22:00)
[2023-03-01] MEDS: InsuLIN REG 1unit/0.01ml Soln (100units/ml) SC SCH ×4 (07:41→21:49)
[2023-03-01] MEDS ORDERED: RAMIPRIL 10 MG CAP PO SCH (10:00)
[2023-03-01] MEDS ORDERED: METOPROLOL TARTRATE 25 MG TAB PO SCH (10:00)
[2023-03-01] MEDS: cefTRIAXone 1GM/50ML D5W 50 ML IV SCH (10:08)
[2023-03-01] MEDS: AZITHROMYCIN 500MG/ 250ML 250 ML IV SCH (11:52)
[2023-03-01] MEDS: ASPirin 81 mg TAB PO SCH (11:53)
[2023-03-01] MEDS: ENOXAPARIN SOD 40 MG/0.4 ML SYRINGE SC SCH (11:53)
[2023-03-01] MEDS ORDERED: RAMI10CA38 PO (12:19)
[2023-03-01] MEDS ORDERED: MET25T PO (12:19)
[2023-03-01] MEDS ORDERED: METF-370 PO (12:19)
[2023-03-01] MEDS ORDERED: methylPREDNISolone SOD SUCC 40 MG/ML VL IV ONE (14:00)
[2023-03-01] MEDS: D5W/SOD CHL 0.45% 1,000 ML IV SCH (14:52)
[2023-03-01] MEDS: IPRATROPIUM BROM 0.5 MG/2.5ML INH SOL NEB SCH (18:21)
[2023-03-01] MEDS: ALBUTEROL SULF 2.5 MG/0.5ML(0.5%) NEB SOLN NEB SCH (18:21)
[2023-03-01] MEDS: methylPREDNISolone SOD SUCC 40 MG/ML VL IV SCH (21:44)
[2023-03-01] MEDS: METOPROLOL TARTRATE 25 MG TAB PO SCH (21:45)
[2023-03-02] VITALS (13 sets, daily range): BP systolic 103–129; BP diastolic 40–62; PULSE 84–123; RESP 15–20; TEMP 97.4–99; O2SAT 90–96
[2023-03-02 06:05] LABS: Alanine Aminotransferase 79 U/L (7-40); Alkaline Phosphatase 55 U/L (46-116); Anion Gap 6 (5-15); Aspartate Aminotransferase 90 U/L (13-40); Calcium 8.1 mg/dL (8.7-10.4); Carbon Dioxide 25 mmol/L (20-30); Chloride 105 mmol/L (98-107); Glucose 187 mg/dL (74-106); Potassium 3.8 mmol/L (3.5-5.1); Sodium 136 mmol/L (136-145)
[2023-03-02 06:06] LABS: Blood Urea Nitrogen 10 mg/dL (9-23)
[2023-03-02 06:08] LABS: Bilirubin, Total 1.1 mg/dL (0.2-1.0); Total Protein 4.9 g/dL (5.7-8.2)
[2023-03-02] MEDS: D5W/SOD CHL 0.45% 1,000 ML IV SCH ×2 (06:46→23:02)
[2023-03-02] MEDS: ACCU-CHEK COMFORT CURVE STRIP VI SCH ×2 (06:46→11:24)
[2023-03-02] MEDS: ACETAMINOPHEN 325 MG TAB PO PRN (06:47)
[2023-03-02] MEDS: InsuLIN REG 1unit/0.01ml Soln (100units/ml) SC SCH ×2 (06:53→11:25)
[2023-03-02] MEDS: IPRATROPIUM BROM 0.5 MG/2.5ML INH SOL NEB SCH ×3 (07:22→17:54)
[2023-03-02] MEDS: ALBUTEROL SULF 2.5 MG/0.5ML(0.5%) NEB SOLN NEB SCH ×3 (07:22→17:58)
[2023-03-02 08:21] LABS: Basophils # (auto) 0 10 ^3/uL (0-0.2); Basophils % (auto) 0.1 % (0.0-2.0); Eosinophils # (auto) 0 10 ^3/uL (0-0.8); Hemoglobin 7.6 g/dL (13.5-17.5); Mean Corpuscular Hemoglobin 30.4 pg (28.0-32.0); Monocytes # (auto) 0.6 10 ^3/uL (0-1.3); Monocytes % (auto) 3.1 % (0.0-12.0)
[2023-03-02 08:23] LABS: Hematocrit 22.9 % (41.0-53.0); Lymphocytes % (auto) 5.2 % (10.0-50.0); Mean Corpuscular Volume 91.9 fL (80.0-100.0); Neutrophils % (auto) 91.6 % (37.0-80.0); Red Blood Cells 2.49 10^6/uL (4.5-5.90); Red Cell Distribution Width 13.7 % (11.8-14.3); White Blood Cell 19.6 10^3/uL (4.4-10.8)
[2023-03-02] MEDS: cefTRIAXone 1GM/50ML D5W 50 ML IV SCH (09:30)
[2023-03-02] MEDS: ASPirin 81 mg TAB PO SCH (09:36)
[2023-03-02] MEDS: methylPREDNISolone SOD SUCC 40 MG/ML VL IV SCH ×2 (09:36→22:10)
[2023-03-02] MEDS: METOPROLOL TARTRATE 25 MG TAB PO SCH ×2 (09:37→22:05)
[2023-03-02] MEDS: ENOXAPARIN SOD 40 MG/0.4 ML SYRINGE SC SCH (09:37)
[2023-03-02] MEDS: AZITHROMYCIN 500MG/ 250ML 250 ML IV SCH (11:00)
[2023-03-02 14:28] LABS: % Iron Saturation 20.6 % (20-55)
[2023-03-02] MEDS ORDERED: GADOTERATE MEG 7.5 MMOL/15ml INJ (0.5MMOL/ml) IV ONE (15:16)
[2023-03-02 15:29] LABS: Ferritin 643.3 ng/mL (22-322)
[2023-03-03] VITALS (59 sets, daily range): BP systolic 104–147; BP diastolic 49–92; PULSE 84–127; RESP 15–46; TEMP 97.4–100.6; O2SAT 92–100
[2023-03-03] MEDS ORDERED: TEMAZEPAM 15 MG CAP PO ONE (02:45)
[2023-03-03] MEDS: ALBUTEROL SULF 2.5 MG/0.5ML(0.5%) NEB SOLN NEB SCH ×3 (06:39→18:33)
[2023-03-03] MEDS: IPRATROPIUM BROM 0.5 MG/2.5ML INH SOL NEB SCH ×3 (06:39→18:33)
[2023-03-03 07:08] LABS: Basophils # (auto) 0 10 ^3/uL (0-0.2); Basophils % (auto) 0.1 % (0.0-2.0); Eosinophils # (auto) 0 10 ^3/uL (0-0.8); Lymphocytes # (auto) 1.1 10 ^3/uL (0.4-5.4)
[2023-03-03 07:10] LABS: Hematocrit 18.6 % (41.0-53.0); Lymphocytes % (auto) 5.1 % (10.0-50.0); Mean Corpuscular Hemoglobin 30.9 pg (28.0-32.0); Mean Corpuscular Hgb Conc. 33.1 g/dL (32.0-36.0); Mean Corpuscular Volume 93.2 fL (80.0-100.0); Monocytes # (auto) 0.9 10 ^3/uL (0-1.3); Monocytes % (auto) 4.2 % (0.0-12.0); Neutrophils # (auto) 19.8 10 ^3/uL (1.6-8.6); Neutrophils % (auto) 90.6 % (37.0-80.0); White Blood Cell 21.9 10^3/uL (4.4-10.8)
[2023-03-03 07:11] LABS: Alanine Aminotransferase 151 U/L (7-40); Alkaline Phosphatase 57 U/L (46-116); Anion Gap 8 (5-15); BUN/Creatinine Ratio 22.2 (10.0-20.0); Blood Urea Nitrogen 20 mg/dL (9-23); Calcium 8.2 mg/dL (8.5-10.1); Carbon Dioxide 26 mmol/L (20-30); Chloride 104 mmol/L (98-107); Glucose 209 mg/dL (74-106); Potassium 4.6 mmol/L (3.5-5.1); Sodium 138 mmol/L (136-145)
[2023-03-03 07:12] LABS: Aspartate Aminotransferase 174 U/L (13-40); Bilirubin, Total 1.6 mg/dL (0.2-1.0)
[2023-03-03 07:26] LABS: Hemoglobin 6.2 g/dL (13.5-17.5)
[2023-03-03 08:17] LABS: Base Excess -3.2 mmol/L (-2.0-2.0)
[2023-03-03] MEDS ORDERED: FUROSEMIDE 40 MG/4 ML VIAL IV ONE (09:00)
[2023-03-03] MEDS: cefTRIAXone 1GM/50ML D5W 50 ML IV SCH (09:38)
[2023-03-03] MEDS: ASPirin 81 mg TAB PO SCH (09:39)
[2023-03-03] MEDS: methylPREDNISolone SOD SUCC 40 MG/ML VL IV SCH (09:39)
[2023-03-03] MEDS: METOPROLOL TARTRATE 25 MG TAB PO SCH (09:40)
[2023-03-03] MEDS: ENOXAPARIN SOD 40 MG/0.4 ML SYRINGE SC SCH (09:41)
[2023-03-03] MEDS ORDERED: LORazepam 2MG/ML-1ML VIAL IV ONE (09:45)
[2023-03-03] MEDS ORDERED: DexAMETHasone SOD PHOS 10MG/1ML VIAL INJ IV ONE (10:00)
[2023-03-03] MEDS: PANTOPRAZOLE 40 MG/10 ML VIAL INJ IV SCH ×2 (11:00→22:46)
[2023-03-03] MEDS: AZITHROMYCIN 500MG/ 250ML 250 ML IV SCH (11:00)
[2023-03-03] MEDS: ACETAMINOPHEN 325 MG TAB PO PRN (14:49)
[2023-03-03 20:16] LABS: Basophils # (auto) 0 10 ^3/uL (0-0.2); Eosinophils # (auto) 0 10 ^3/uL (0-0.8); Monocytes # (auto) 0.9 10 ^3/uL (0-1.3)
[2023-03-03 20:18] LABS: Basophils % (auto) 0.2 % (0.0-2.0); Hematocrit 21.3 % (41.0-53.0); Lymphocytes # (auto) 1.1 10 ^3/uL (0.4-5.4); Lymphocytes % (auto) 5.5 % (10.0-50.0); Mean Corpuscular Hgb Conc. 32.4 g/dL (32.0-36.0); Mean Corpuscular Volume 92.5 fL (80.0-100.0); Monocytes % (auto) 4.3 % (0.0-12.0); Neutrophils # (auto) 18.4 10 ^3/uL (1.6-8.6); Nucleated Red Blood Cells % 0.5 %; Red Cell Distribution Width 15.1 % (11.8-14.3); White Blood Cell 20.4 10^3/uL (4.4-10.8)
[2023-03-03 20:37] LABS: Hemoglobin 6.9 g/dL (13.5-17.5)
[2023-03-03] MEDS: DexAMETHasone SOD PHOS 4 MG/1ML SDV INJ IV SCH (22:46)
[2023-03-03] MEDS: MORPHINE SULFATE INJ 2 MG/ml SYRG IV PRN (23:41)
[2023-03-04] VITALS (66 sets, daily range): BP systolic 131–171; BP diastolic 42–83; PULSE 85–132; RESP 16–44; TEMP 97.8–99; O2SAT 85–100
[2023-03-04] MEDS: LORazepam 2MG/ML-1ML VIAL IV PRN ×3 (03:21→18:13)
[2023-03-04 04:15] LABS: Basophils # (auto) 0 10 ^3/uL (0-0.2); Basophils % (auto) 0.1 % (0.0-2.0); Eosinophils # (auto) 0 10 ^3/uL (0-0.8); Hemoglobin 7.8 g/dL (13.5-17.5); Lymphocytes # (auto) 1.1 10 ^3/uL (0.4-5.4); Lymphocytes % (auto) 5.7 % (10.0-50.0); Neutrophils % (auto) 89.9 % (37.0-80.0); Red Cell Distribution Width 15.4 % (11.8-14.3); White Blood Cell 19.6 10^3/uL (4.4-10.8)
[2023-03-04 04:16] LABS: Hematocrit 23.6 % (41.0-53.0); Mean Corpuscular Hemoglobin 30.8 pg (28.0-32.0); Mean Corpuscular Hgb Conc. 33.1 g/dL (32.0-36.0); Mean Corpuscular Volume 92.8 fL (80.0-100.0); Monocytes # (auto) 0.9 10 ^3/uL (0-1.3); Monocytes % (auto) 4.3 % (0.0-12.0); Neutrophils # (auto) 17.6 10 ^3/uL (1.6-8.6); Nucleated Red Blood Cells % 0.7 %; Red Blood Cells 2.55 10^6/uL (4.5-5.90)
[2023-03-04 04:25] LABS: Alanine Aminotransferase 234 U/L (7-40); Albumin 2.7 g/dL (3.2-4.8); Alkaline Phosphatase 58 U/L (46-116); Anion Gap 7 (5-15); Aspartate Aminotransferase 448 U/L (13-40); BUN/Creatinine Ratio 22.3 (10.0-20.0); Blood Urea Nitrogen 21 mg/dL (9-23); Calcium 7.5 mg/dL (8.7-10.4); Carbon Dioxide 24 mmol/L (20-30); Chloride 102 mmol/L (98-107); Potassium 4.3 mmol/L (3.5-5.1)
[2023-03-04 04:26] LABS: Bilirubin, Total 1.9 mg/dL (0.2-1.0); Total Protein 4.6 g/dL (5.7-8.2)
[2023-03-04 04:32] LABS: Sodium 133 mmol/L (136-145)
[2023-03-04] MEDS: MORPHINE SULFATE INJ 2 MG/ml SYRG IV PRN ×2 (04:35→07:59)
[2023-03-04 04:42] LABS: Glucose 229 mg/dL (74-106)
[2023-03-04] MEDS: ALBUTEROL SULF 2.5 MG/0.5ML(0.5%) NEB SOLN NEB SCH ×3 (06:53→19:18)
[2023-03-04] MEDS: IPRATROPIUM BROM 0.5 MG/2.5ML INH SOL NEB SCH ×3 (09:11→19:18)
[2023-03-04] MEDS ORDERED: guaiFENesin 200 MG/10 ML UD GT PRN (09:30)
[2023-03-04] MEDS: cefTRIAXone 1GM/50ML D5W 50 ML IV SCH (09:31)
[2023-03-04] MEDS ORDERED: FUROSEMIDE 40 MG/4 ML VIAL IV SCH (10:00)
[2023-03-04] MEDS: HYDROmorphone HCL 2 MG/ML VL/or syr IV PRN ×3 (10:22→21:35)
[2023-03-04] MEDS: DexAMETHasone SOD PHOS 4 MG/1ML SDV INJ IV SCH ×2 (10:33→21:38)
[2023-03-04] MEDS: PANTOPRAZOLE 40 MG/10 ML VIAL INJ IV SCH ×2 (10:33→21:36)
[2023-03-04] MEDS: AZITHROMYCIN 500MG/ 250ML 250 ML IV SCH (10:33)
[2023-03-04] MEDS ORDERED: CEFEPIME 2GM/50ML NS 50 ML IV ONE (12:45)
[2023-03-04] MEDS: CEFEPIME 2GM/50ML NS 50 ML IV SCH (21:44)
[2023-03-04] MEDS ORDERED: FUROSEMIDE 40 MG/4 ML VIAL IV ONE (23:00)
[2023-03-05] VITALS (40 sets, daily range): BP systolic 105–160; BP diastolic 24–80; PULSE 110–138; RESP 21–93; TEMP 97.8–98.6; O2SAT 73–98
[2023-03-05] MEDS: LORazepam 2MG/ML-1ML VIAL IV PRN ×6 (00:17→15:32)
[2023-03-05] MEDS: HYDROmorphone HCL 2 MG/ML VL/or syr IV PRN ×2 (03:20→11:35)
[2023-03-05 04:22] LABS: Hemoglobin 7.4 g/dL (13.5-17.5); White Blood Cell 25.3 10^3/uL (4.4-10.8)
[2023-03-05 04:24] LABS: Hematocrit 22.4 % (41.0-53.0); Mean Corpuscular Hemoglobin 30.4 pg (28.0-32.0); Mean Corpuscular Hgb Conc. 32.9 g/dL (32.0-36.0); Mean Corpuscular Volume 92.4 fL (80.0-100.0); Red Blood Cells 2.43 10^6/uL (4.5-5.90); Red Cell Distribution Width 15.2 % (11.8-14.3)
[2023-03-05 04:34] LABS: Basophils % (manual) 0 (0.0-2.0); Blast Cells 0; Eosinophils % (manual) 0 (0-7); Metamyelocytes % 0; Myelocytes % 0; Promyelocytes % 0; Reactive Lymphocytes 0
[2023-03-05 04:41] LABS: Alanine Aminotransferase 245 U/L (7-40); Albumin 2.9 g/dL (3.2-4.8); Alkaline Phosphatase 75 U/L (46-116); Aspartate Aminotransferase 274 U/L (13-40); BUN/Creatinine Ratio 27.8 (10.0-20.0); Bilirubin, Total 2.9 mg/dL (0.2-1.0); Blood Urea Nitrogen 30 mg/dL (9-23); Calcium 7.6 mg/dL (8.5-10.1); Chloride 99 mmol/L (98-107); Glucose 299 mg/dL (74-106); Potassium 4.4 mmol/L (3.5-5.1); Sodium 133 mmol/L (136-145)
[2023-03-05 04:49] LABS: Anion Gap 10 (5-15); Carbon Dioxide 24 mmol/L (20-30)
[2023-03-05] MEDS: ALBUTEROL SULF 2.5 MG/0.5ML(0.5%) NEB SOLN NEB SCH ×2 (06:00→12:00)
[2023-03-05] MEDS: IPRATROPIUM BROM 0.5 MG/2.5ML INH SOL NEB SCH ×2 (06:00→12:00)
[2023-03-05 07:57] LABS: Band Neutrophils % (manual) 4; Lymphocytes % (manual) 7 (10.0-50.0); Monocytes % (manual) 3 (0-12)
[2023-03-05 07:58] LABS: Platelet Estimate Decreased
[2023-03-05] MEDS: PANTOPRAZOLE 40 MG/10 ML VIAL INJ IV SCH (09:42)
[2023-03-05] MEDS: DexAMETHasone SOD PHOS 4 MG/1ML SDV INJ IV SCH (09:42)
[2023-03-05] MEDS: CEFEPIME 2GM/50ML NS 50 ML IV SCH (09:43)
[2023-03-05] MEDS: MORPHINE SULFATE INJ 2 MG/ml SYRG IV PRN ×2 (14:23→15:32)
[2023-03-05] MEDS ORDERED: methylPREDNISolone SOD SUCC 125 MG/2 ML VL ONE (15:19)
[2023-03-05] MEDS ORDERED: methylPREDNISolone SOD SUCC 125 MG/2 ML VL IV ONE (15:30)
[2023-03-05] MEDS ORDERED: MORPHINE SULFATE INJ 2 MG/ml SYRG IV PRN (15:45)
[2023-03-05] MEDS ORDERED: MORPHINE SULFATE INJ 2 MG/ml SYRG IV ONE (15:45)
== END 2023-03-05 16:12 | DRG 871 ==
LOC: EDBD 03:09 → EDUNIT# 03:09 → ER 03:09 → TELE 06:30 → TELE-CENTR 13:09 → ICU WEST 03-03 11:51
PROVIDERS: ADMIT Nurse Practitioner Acute Care; ATTEND Nurse Practitioner Acute Care
PROC: 30233N1 Transfusion of Nonautologous Red Blood Cells into Peripheral Vein, Percutaneous Approach (ICD-10-PCS; principal; 2023-03-03)
PROC: 5A09357 Assistance with Respiratory Ventilation, Less than 24 Consecutive Hours, Continuous Positive Airway Pressure (ICD-10-PCS; 2023-03-03)
PROC: 5A09357 Assistance with Respiratory Ventilation, Less than 24 Consecutive Hours, Continuous Positive Airway Pressure (ICD-10-PCS; 2023-03-04)
PROC: 05HA33Z Insertion of Infusion Device into Left Brachial Vein, Percutaneous Approach (ICD-10-PCS; 2023-03-05)
PROC: B54NZZA Ultrasonography of Left Upper Extremity Veins, Guidance (ICD-10-PCS; 2023-03-05)
PROC: 5A0935A Assistance with Respiratory Ventilation, Less than 24 Consecutive Hours, High Flow/Velocity Cannula (ICD-10-PCS; 2023-03-05)
DX: A41.9 Sepsis, unspecified organism (principal); E43 Unspecified severe protein-calorie malnutrition; J96.01 Acute respiratory failure with hypoxia; J15.69 Pneumonia due to other Gram-negative bacteria; J15.9 Unspecified bacterial pneumonia; C78.7 Secondary malignant neoplasm of liver and intrahepatic bile duct; E87.1 Hypo-osmolality and hyponatremia; J44.0 Chronic obstructive pulmonary disease with (acute) lower respiratory infection; C79.31 Secondary malignant neoplasm of brain; C34.92 Malignant neoplasm of unspecified part of left bronchus or lung; C34.91 Malignant neoplasm of unspecified part of right bronchus or lung; R04.2 Hemoptysis; K92.1 Melena; Z66 Do not resuscitate; Z20.822 Contact with and (suspected) exposure to COVID-19; R65.20 Severe sepsis without septic shock; Z51.5 Encounter for palliative care; Z98.61 Coronary angioplasty status; D64.9 Anemia, unspecified; E86.0 Dehydration; E11.9 Type 2 diabetes mellitus without complications; F17.210 Nicotine dependence, cigarettes, uncomplicated; I10 Essential (primary) hypertension; I25.10 Atherosclerotic heart disease of native coronary artery without angina pectoris; R74.01 Elevation of levels of liver transaminase levels; R79.89 Other specified abnormal findings of blood chemistry; D72.829 Elevated white blood cell count, unspecified; Z85.118 Personal history of other malignant neoplasm of bronchus and lung; Z86.73 Personal history of transient ischemic attack (TIA), and cerebral infarction without residual deficits; I25.2 Old myocardial infarction; R59.0 Localized enlarged lymph nodes
CPT/HCPCS: 36415; 36600; 70553; 71045; 71275; 80053; 81001; 82270; 82607; 82728; 82805; 82962; 83036; 83540; 83550; 83605; 83735; 83880; 84484; 85007; 85025; 85027; 85379; 85610; 85730; 86850; 86900; 86901; 86920; 87040; 87081; 87426; 87804; 93005; 93306; 94640; 94660; 96365; 96366; 96367; 96372; 99291; C9113; G0378; J0692; J0696; J1100; J1815; J2543